=== PATIENT | female | born 1945 | race Caucasian/White ===

== ENCOUNTER 2023-11-03 15:15 | Inpatient (IN) | payer MEDICARE, BC ==
[~2023-11-03] VITALS: Ht 154.9 cm; Wt 61.9 kg
[2023-11-03] MEDS ORDERED: Ondansetron 4 MG/2 ML VIAL IV ONE (15:30)
[2023-11-03] MEDS ORDERED: Morphine 4 MG/ML VIAL IV ONE ×2 (15:30→16:30)
[2023-11-03] MEDS ORDERED: LEXAPRO20 MG PO (16:24)
[2023-11-03] MEDS ORDERED: LIPITOR20 MG PO (16:25)
[2023-11-03] MEDS ORDERED: HYZAAR 50-12.1 UDTAB PO (16:26)
[2023-11-03] MEDS ORDERED: PRILOSEC10 MG PO (16:26)
[2023-11-03] MEDS ORDERED: CLARITIN 1010 MG/TAB PO (16:27)
[2023-11-03] MEDS ORDERED: ASPIRIN 81M81 MG/TA2 PO (16:27)
[2023-11-03] MEDS ORDERED: FLORASTOR250 MG PO (16:27)
[2023-11-03] MEDS ORDERED: ALEVE LIQCAPS PO ×2 (16:28→16:29)
[2023-11-03] MEDS ORDERED: VITAMIN D31000 I1 PO (16:30)
[2023-11-03] MEDS ORDERED: *Potassium Replacement Protocol MC SCH (16:30)
--- NOTE | 2023-11-03 17:42 | NUR ---
Pt. arrived to the floor from ED via stretcher. Pt. transferred to the bed with 3 assist and slide board. Pt. is A&OX3, assessment complete. INT to lt. ac patent. Pt. reports pain at a 4 on pain scale to lt. hip. let leg is shortened and externally rotated. Bilateral pedal pulses 2+, no edema noted. Pt. denies further needs. Call light within reach.
[2023-11-03] MEDS ORDERED: Ondansetron 4 MG/2 ML VIAL IV PRN (18:15)
[2023-11-03] MEDS ORDERED: NS 1,000 ML IV SCH (18:15)
[2023-11-03] MEDS ORDERED: Acetaminophen 325 MG TAB PO PRN (18:15)
[2023-11-03] MEDS ORDERED: oxyCODONE 5 MG TAB PO PRN (18:15)
[2023-11-03] MEDS ORDERED: Naloxone 0.4 MG/ML VIAL IV PRN (18:15)
[2023-11-03] MEDS ORDERED: Acetaminophen 500 MG TAB PO SCH (19:02)
[2023-11-03 20:00] VITALS: BP 116/65; PULSE 84; TEMP 98.5
[2023-11-04] VITALS (17 sets, daily range): BP systolic 93–132; BP diastolic 49–73; PULSE 64–83; TEMP 97.3–98.3
--- NOTE | 2023-11-04 01:01 | NUR ---
NURSING SHIFT ASSESSMENT COMPLETED. THE PATIENT WAS ALERT AND ORIENTED. THE PATIENT REPORTED LEFT HIP PAIN 3/. SCHEDULED TYLENOL PROVIDED. PAIN PREVENTION DISCUSSED AND ORDERED AVAILABLE MEDICATIONS REVIEWED. THE PATIENT VERBALIZED UNDERSTANDING. THE PATIENT WAS REPOSITIONED FOR COMFORT AND PLACED IN A YELLOW GOWN, FALL RISK BRACELET PLACED, YELLOW SOCKS, SCDS AND A FALL RISK SIGN WAS PLACED OUTSIDE THE DOOR. THE BED ALARM IS ON. THE BED IS IN THE LOW POSITION AND CALL LIGHT AND PERSONAL BELONGINGS ARE WITHIN REACH.
[2023-11-04 06:49] LABS: BASO % 0.3 % (0.0-2.0); GRAN # 4.7 K/mm3 (1.4-6.5); GRAN % 68.6 % (42.2-75.2); LYMPH # 1.4 K/mm3 (1.2-3.4); LYMPH % 20.9 % (20.0-51.0); MEAN CELL VOLUME 81 fl (80.0-100.0); MEAN CORPUSCULAR HGB CONC 33 g/dl (33.0-37.0); MEAN PLATELET VOLUME 9.6 fl (7.4-10.4); MONO # 0.7 K/mm3 (0.1-0.6); MONO % 9.9 % (1.7-9.3); PLATELET COUNT 142 K/mm3 (130-400); RED BLOOD COUNT 3.36 M/mm3 (4.10-5.30); REDCELL DISTRIBUTION WIDTH-CV 14.1 % (11.5-14.5)
[2023-11-04 07:10] LABS: ALBUMIN 3.2 g/dL (3.4-4.8); CALCIUM 8.6 mg/dL (8.4-10.2); CREATININE, serum 0.77 mg/dL (0.57-1.11); HEMATOCRIT 27.3 % (37.0-47.0); HEMOGLOBIN 8.9 g/dl (12.5-16.0); MAGNESIUM 1.8 mg/dL (1.6-2.6); MEAN CORPUSCULAR HEMOGLOBIN 26 pg (27-31); PHOSPHOROUS 3.8 mg/dL (2.3-4.7); POTASSIUM 3.7 mEq/L (3.5-4.5)
[2023-11-04] MEDS ORDERED: HYDROmorphone 1 MG/1 ML SYRINGE [PACU/SDC ONLY] IV PRN (07:15)
[2023-11-04] MEDS ORDERED: hydrALAZINE 20 MG/ML 1 ML VIAL IV PRN (07:15)
[2023-11-04] MEDS ORDERED: LR 1,000 ML IV SCH (07:15)
[2023-11-04] MEDS ORDERED: fentaNYL 50 MCG/ML 1 ML SYRINGE/VIAL [PACU/SDC ONLY] IV PRN (07:15)
[2023-11-04] MEDS ORDERED: Ondansetron 4 MG/2 ML VIAL IV PRN (07:15)
[2023-11-04] MEDS ORDERED: Lidocaine PF 2% (20 MG/ML) 5 ML VIAL ONE ×2 (07:26→07:39)
[2023-11-04] MEDS ORDERED: Rocuronium 50 MG/5 ML Multi-Dose VIAL ONE (07:27)
[2023-11-04] MEDS ORDERED: Glycopyrrolate 0.2 MG/ML 1 ML VIAL ONE (07:29)
[2023-11-04] MEDS ORDERED: Ondansetron 4 MG/2 ML VIAL ONE (07:29)
[2023-11-04] MEDS ORDERED: dexAMETHasone 10 MG/ML VIAL ONE (07:29)
[2023-11-04] MEDS ORDERED: NS 10 ML IV ONE (07:32)
[2023-11-04] MEDS ORDERED: fentaNYL 50 MCG/ML 2 ML VIAL ONE (07:35)
[2023-11-04] MEDS ORDERED: fentaNYL 50 MCG/ML 5 ML VIAL ONE (07:35)
[2023-11-04] MEDS ORDERED: Midazolam 2 MG/2 ML VIAL ONE (07:35)
[2023-11-04] MEDS ORDERED: oxyCODONE 5 MG TAB PO PRN (08:30)
[2023-11-04] MEDS ORDERED: Naloxone 0.4 MG/ML VIAL IV PRN (08:30)
--- NOTE | 2023-11-04 08:31 | NUR ---
ASSESSMENTS COMPLETE, PT IS A/O X4, VSS, PT TO SURGERY PER BED WITH [facility] PACU @4000. CONSENT ON CHART, PT WANTS TO SPEAK WITH SURGEON PRIOR TO SIGNING. [facility] AWARE. AT BEDSIDE AND FOLLOWING TO OR WAITING.
[2023-11-04] MEDS ORDERED: ePHEDrine 50 MG/ML VIAL ONE (08:46)
[2023-11-04] MEDS ORDERED: Topical Skin Adhesive 1 EACH (1 ML) TOP ONE (09:21)
--- NOTE | 2023-11-04 10:20 | NUR ---
PT TO ROOM 325 PER BED FROM PACU WITH REPORT FROM [facility] PACU@ 1010. PT IS A/O SLIGHTLY DROWSEY. LUNG CTA, BOWEL SOUNDS PRESENT. DRESSINGS TO LEFT HIP CDI X3. IV TO LFA. SCDS AND GOKUL SANTA.
--- NOTE | 2023-11-04 11:50 | NUR ---
Data: Patient's accepted [employer] And Found Clerk visit offered during Lost And Found Clerk rounds. was in surgery waiting area. reviewed life; requested coffee. Assessment: Patient's was concerned for her well-being for surgery; considering options for their life after the surgery. Plan of Care: Lost And Found Clerk provided supportive listening and a ministry of presence. Lost And Found Clerk provided coffee. thanked Lost And Found Clerk for the visit. Chaplains will remain available as needed/requested while Patient is admitted to this hospital.
[2023-11-04] MEDS ORDERED: ceFAZolin 1 G in Water For Injection,Sterile 10 ML IV SCH ×2 (12:30→17:00)
--- NOTE | 2023-11-04 19:30 | NUR ---
PT A&O X4 LAYING IN BED. VSS ON 1L/NC. X3 DRSG TO LEFT HIP CDI. PT STATES PAIN IS 4/10, GAVE SCHEDULED TYLENOL & ICE PACK. AMBULATED TO BATHROOM WITH X1 ASSIST. NS @ 75MLS/HR INFUSING TO LEFT AC. BILAT TEDS & SCDS ON. PT DENYING FURTHER NEEDS. CALL LIGHT IN REACH
[2023-11-04] MEDS ORDERED: Omeprazole 10 MG **** subs to Pantoprazole 20 MG PO SCH (21:00)
[2023-11-04] MEDS ORDERED: Atorvastatin 20 MG TAB PO SCH (21:00)
[2023-11-05] VITALS (17 sets, daily range): BP systolic 88–121; BP diastolic 50–76; PULSE 68–79; TEMP 97.9–98.8
--- NOTE | 2023-11-05 05:29 | NUR ---
PT RESTING IN BED WITH UNLABORED RESP. REPORTS ADEQUATE PAIN CONTROL WITH SCHEDULED TYLNEOL. DENYING OTHER NEEDS AT THIS TIME. CALL LIGHT IN REACH.
--- NOTE | 2023-11-05 08:45 | NUR ---
PT SITTING UP IN BED EATING BREAKFAST. DR. ROSSI IN TO SEE PT THIS AM.SEE CHART FOR ORDERS. DRESSINGS TO LEFT HIP CDI WITH GAUZE AND TEGADERM.
[2023-11-05 08:49] LABS: BASO % 0.1 % (0.0-2.0); GRAN # 5.7 K/mm3 (1.4-6.5); GRAN % 78.7 % (42.2-75.2); LYMPH % 13.1 % (20.0-51.0); MEAN CELL VOLUME 83 fl (80.0-100.0); MEAN CORPUSCULAR HGB CONC 32 g/dl (33.0-37.0); MEAN PLATELET VOLUME 10.2 fl (7.4-10.4); MONO # 0.6 K/mm3 (0.1-0.6); MONO % 7.7 % (1.7-9.3); PLATELET COUNT 122 K/mm3 (130-400); RED BLOOD COUNT 2.63 M/mm3 (4.10-5.30); REDCELL DISTRIBUTION WIDTH-CV 14.4 % (11.5-14.5)
[2023-11-05] MEDS ORDERED: Cholecalciferol (Vit D3) 1000 Units TAB PO SCH (09:00)
[2023-11-05] MEDS ORDERED: Ascorbic Acid 500 MG TAB PO SCH (09:00)
[2023-11-05] MEDS ORDERED: Escitalopram 10 MG TAB PO SCH (09:00)
[2023-11-05] MEDS ORDERED: Loratadine 10 MG TAB PO SCH (09:00)
[2023-11-05] MEDS ORDERED: Calcium Carbonate 500 MG TAB PO SCH (09:00)
[2023-11-05 09:09] LABS: ALBUMIN 2.8 g/dL (3.4-4.8); CALCIUM 8.2 mg/dL (8.4-10.2); CREATININE, serum 0.71 mg/dL (0.57-1.11); MAGNESIUM 1.8 mg/dL (1.6-2.6); PHOSPHOROUS 2.6 mg/dL (2.3-4.7); POTASSIUM 3.7 mEq/L (3.5-4.5)
[2023-11-05 09:12] LABS: HEMATOCRIT 21.8 % (37.0-47.0); HEMOGLOBIN 6.9 g/dl (12.5-16.0); MEAN CORPUSCULAR HEMOGLOBIN 26 pg (27-31)
--- NOTE | 2023-11-05 10:04 | NUR ---
Daycare Assistant met with patient to discuss discharge planning. Patient verified that she and John ([phone]) live in [facility] and are in [place] to visit their farm near [place]. Patient states that they come in the Spring and Fall for one month yearly. Patient lists her daughter Abigail ([phone]) as alternate contact. Patient states that her PCP is in [place] and she uses [facility] when they are in [place]. Patient has no problems affording medications. Patient denies using any DME and states she uses walking skicks when they are hiking their property. Patient shared that she swims and exercises regularly, is active and independent. She reports that their farm house is two story with bedrooms upstairs. Her is moving a bed downstairs to accomodate patient when she returns home. He is also ordering a ramp for the entrance to their home. Patient has discussed IPR with attending and prefers this level of rehab. IPR consult entered by attending. Discharge plan: IPR
[2023-11-05] MEDS ORDERED: Multivitamin TAB PO SCH (12:00)
--- NOTE | 2023-11-05 12:44 | NUR ---
VERIFIED BLOOD WITH MARIA ELENA ADAMS RN. REMAINED WITH PATIENT FIRST 15MIN OF TRANSFUSION. REVIEWED TRANSFUSION REACTION, PT VERBALIZED UNDERSTANDING.
--- NOTE | 2023-11-05 15:04 | NUR ---
TRANSFUSION COMPLETE, PT TOLERATED WELL.
[2023-11-05 16:00] LABS: HEMATOCRIT 25.7 % (37.0-47.0); HEMOGLOBIN 8.3 g/dl (12.5-16.0)
[2023-11-06] VITALS (7 sets, daily range): BP systolic 98–131; BP diastolic 61–79; PULSE 72–75; TEMP 98.5–99.2
[2023-11-06 06:33] LABS: BASO % 0.4 % (0.0-2.0); EOS % 0.4 % (0.0-4.0); GRAN # 3.9 K/mm3 (1.4-6.5); GRAN % 74.3 % (42.2-75.2); LYMPH # 0.8 K/mm3 (1.2-3.4); LYMPH % 15.8 % (20.0-51.0); MEAN CELL VOLUME 86 fl (80.0-100.0); MEAN CORPUSCULAR HGB CONC 31 g/dl (33.0-37.0); MEAN PLATELET VOLUME 9.9 fl (7.4-10.4); MONO # 0.5 K/mm3 (0.1-0.6); MONO % 8.7 % (1.7-9.3); PLATELET COUNT 101 K/mm3 (130-400); RED BLOOD COUNT 2.82 M/mm3 (4.10-5.30); REDCELL DISTRIBUTION WIDTH-CV 14.5 % (11.5-14.5)
[2023-11-06 06:39] LABS: HEMATOCRIT 24.2 % (37.0-47.0); HEMOGLOBIN 7.6 g/dl (12.5-16.0); MEAN CORPUSCULAR HEMOGLOBIN 27 pg (27-31)
[2023-11-06 06:51] LABS: ALBUMIN 2.6 g/dL (3.4-4.8); CREATININE, serum 0.69 mg/dL (0.57-1.11); MAGNESIUM 1.7 mg/dL (1.6-2.6); PHOSPHOROUS 2.1 mg/dL (2.3-4.7); POTASSIUM 3.5 mEq/L (3.5-4.5)
[2023-11-06] MEDS ORDERED: Potassium Bicarbonate/Citrate 20 MEQ Effervescent TAB PO SCH (08:00)
--- NOTE | 2023-11-06 08:50 | NUR ---
Hospitalist team rounded. IV to INT per verbal order. Roxicodone given prior to therapy per verbal order. Ice pack to patient L.hip per request. Patient toom am medications without problem
[2023-11-06] MEDS ORDERED: Magnesium Oxide 400 MG TAB PO SCH (09:00)
--- NOTE | 2023-11-06 10:30 | NUR ---
Pt sitting up in chair. A&Ox4. VSS. S1S2. Clear lungs. ABDis rounded, soft, non-tender with audible bowel sounds. Palpable pulses in all extremities with good strength. IV in L Fa is INT, patent. Raisa, charge nurse, administered AM meds. No further needs at thi time. Call light in reach and chair alarm on.
[2023-11-06] MEDS ORDERED: Ferrous Sulfate 325 MG TAB PO SCH (12:00)
[2023-11-06] MEDS ORDERED: FERRO-TIME325 MG PO (12:59)
[2023-11-06] MEDS ORDERED: ROXICODONE 55 MG/TAB PO (13:05)
[2023-11-06] MEDS ORDERED: TYLENOL 500MG500 MG PO (13:06)
[2023-11-06] MEDS ORDERED: OSCAL 500 TAB500 MG PO (13:06)
[2023-11-06] MEDS ORDERED: DUO-KAPS1 CAP PO (13:07)
[2023-11-06] MEDS ORDERED: VITAMIN C500 MG PO (13:07)
--- NOTE | 2023-11-06 13:42 | NUR ---
Pt workig with PT as part of evaluation to get over to IPR. Administered noon meds in new room. Handed report over to ERIC Zuniga. No further needs at this time.
--- NOTE | 2023-11-06 15:16 | NUR ---
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
== END 2023-11-06 14:01 | DRG 481 ==
LOC: COL.ER 15:15 → SURG 16:19
PROVIDERS: Internal Medicine; Orthopaedic Surgery Sports Medicine; ADMIT Internal Medicine
PROC: 0QS706Z Reposition Left Upper Femur with Intramedullary Internal Fixation Device, Open Approach (ICD-10-PCS; principal; 2023-11-04 08:30)
PROC: 30233N1 Transfusion of Nonautologous Red Blood Cells into Peripheral Vein, Percutaneous Approach (ICD-10-PCS; 2023-11-05)
DX: S72.142A Displaced intertrochanteric fracture of left femur, initial encounter for closed fracture (principal); D62 Acute posthemorrhagic anemia; I10 Essential (primary) hypertension; E78.5 Hyperlipidemia, unspecified; M85.80 Other specified disorders of bone density and structure, unspecified site; M19.90 Unspecified osteoarthritis, unspecified site; K21.9 Gastro-esophageal reflux disease without esophagitis; W18.39XA Other fall on same level, initial encounter; F32.A Depression, unspecified; Z79.82 Long term (current) use of aspirin; Z79.899 Other long term (current) drug therapy; Z88.2 Allergy status to sulfonamides; Y93.89 Activity, other specified; Y92.89 Other specified places as the place of occurrence of the external cause; Z23 Encounter for immunization
CPT/HCPCS: A9284; C1713; J0690; J1100; J1170; J2250; J2270; J2405; J2704; J2795; J3010; J7030; P9016